=== PATIENT | male | born 1995 | race Caucasian/White ===

== ENCOUNTER 2021-12-08 15:03 | Emergency (ER) | payer BC, MEDICAID | END 2021-12-08 17:45 | disposition home or self-care (01) | LOC: FB.ED 15:03 | DX: S40.011A Contusion of right shoulder, initial encounter (principal); S50.11XA Contusion of right forearm, initial encounter; U07.1 COVID-19; Z72.0 Tobacco use; W18.30XA Fall on same level, unspecified, initial encounter; Y92.002 Bathroom of unspecified non-institutional (private) residence as the place of occurrence of the external cause | CPT/HCPCS: 36415; 73110-RT; 80053; 85025; 86140; 99285; U0002 ==